=== PATIENT | male | born 1990 | race Asian ===

== ENCOUNTER 2018-05-23 17:33 | Emergency (ER) | payer MEDICAID ==
[~2018-05-23] VITALS: Ht 185.4 cm; Wt 95.3 kg
[2018-05-23 17:33] VITALS: BP_SYST 127
--- NOTE | 2018-05-23 17:33 | NUR ---
BROUGHT IN BY [facility], PLACED IN BED #5 AND TRIAGED. REPORT GIVEN TO RAVINDER.
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
--- NOTE | 2018-05-23 18:02 | NUR ---
SILVIOD at bedside speaking to patient.
--- NOTE | 2018-05-23 18:15 | NUR ---
LIDIA Gilbert examining patient.
[2018-05-23 18:48] LABS: BARBITURATE, URINE NEGATIVE (NEG <=200); BENZODIAZEPINE, URINE NEGATIVE (NEG <=150); CANNABINOID, URINE POSITIVE (NEG <=50); COCAINE, URINE NEGATIVE (NEG <=150); METHAMPHETAMINES SCREEN,URINE NEGATIVE (NEG <=500); OPIATE, URINE NEGATIVE (NEG <=100); PHENCYCLIDINE SCREEN,URINE NEGATIVE (NEG <=25); UR TRICYCLIC ANTIDEPRESSANTS NEGATIVE (NEG <=300); URINE AMPHETAMINE NEGATIVE (NEG <=500); URINE METHADONE NEGATIVE (NEG <=200); URINE OXYCODONE SCREEN NEGATIVE (NEG <=100); URINE PROPOXYPHENE SCREEN NEGATIVE (NEG <=300)
[2018-05-23] MEDS ORDERED: KETOROLAC TROMETHAMINE 60 MG/2 ML VIAL IM ONE (19:30)
--- NOTE | 2018-05-23 19:36 | NUR ---
ER JAYSHREE Gilbert at bedside. Modified C-spine cleared by JAYSHREE Gilbert . Hard collar removed by JAYSHREE Gilbert.
--- NOTE | 2018-05-23 19:43 | NUR ---
Patient refusing IM Toradol at this time. States he will fill his Motrin Rx. JAYSHREE Gilbert made aware.
[2018-05-23 19:47] VITALS: BP_SYST 127
--- NOTE | 2018-05-23 19:47 | NUR ---
Patient given written and verbal discharge instructions and verbalizes understanding. ER MD discussed with patient the results and treatment provided. Patient in stable condition. ID arm band removed. Rx of Motrin and Flexeril given. Patient educated on pain management and to follow up with PMD in 2-3 days. Pain Scale 0/10 Opportunity for questions provided and answered.
== END 2018-05-23 19:47 | disposition home or self-care (01) ==
LOC: SED 17:33
DX: S06.9X9A Unspecified intracranial injury with loss of consciousness of unspecified duration, initial encounter (principal); S16.1XXA Strain of muscle, fascia and tendon at neck level, initial encounter; R03.0 Elevated blood-pressure reading, without diagnosis of hypertension; V49.9XXA Car occupant (driver) (passenger) injured in unspecified traffic accident, initial encounter; Y93.89 Activity, other specified; Y92.89 Other specified places as the place of occurrence of the external cause; Y99.8 Other external cause status
CPT/HCPCS: 70450; 72125; 80307; 99285; J1885